=== PATIENT | female | born 1975 | race Caucasian/White ===

== ENCOUNTER 2017-01-12 23:51 | Emergency (ER) | payer MEDICAID ==
[~2017-01-12] VITALS: Ht 157.5 cm; Wt 69.5 kg
[~2017-01-12 23:51] MED LIST: ACET1TAB40 PO; DICL50TA11 PO; HYDR-3498 PO; IBUP-1542 PO; ONDA4TAB14 PO; PEN500 PO; PRED20TA PO
[2017-01-13 00:12] VITALS: Ht 157.5 cm; Wt 69.5 kg
[2017-01-13] MEDS ORDERED: METHYLPREDNISOLONE 125 MG INJ IM STA (01:40)
[2017-01-13] MEDS ORDERED: ALBUTEROL 0.5% (NEB) 2.5 MG/0.5 ML AMP INH STA (01:40)
[2017-01-13] MEDS ORDERED: IPRATROPIUM (NEB) 0.5 MG/2.5 ML AMP HHN ONE (02:00)
--- NOTE | 2017-01-13 02:04 | ERD ---
ER Documentation Chief Complaint Date/Time DATE: 01/13/17 TIME: 02:02 Chief Complaint cough x 3 days, hx- asthma HPI 41-year-old female presents here in emergency department for complains of cough and wheezing for 3 days. Patient has history of asthma, does not have any inhaler at home. Patient has been having dry cough, does not cough up any phlegm or blood. Patient does not have any chest pain or palpitations. Patient is complaining of runny nose nasal congestion with clear nasal discharge. Patient has been having on and off fever. Patient denies any sick contacts. ROS All systems reviewed and are negative except as per history of present illness. Medications Home Meds Active Scripts Ondansetron (Ondansetron Odt) 4 Mg Tab.rapdis, 4 MG PO Q6H Y for NAUSEA AND/OR VOMITING, #15 TAB Prov:OMAR AGUIRRE PA-C 10/03/16 Ibuprofen* (Motrin*) 600 Mg Tab, 600 MG PO Q6H Y for PAIN AND OR ELEVATED TEMP, #30 TAB Prov:OMAR AGUIRRE PA-C 10/03/16 Acetaminophen with Codeine (Acetaminophen-Cod #3 Tablet) 1 Each Tablet, 1 TAB PO Q6H Y for PAIN, #7 TAB Prov:HUDSON JOYCE DO 09/18/16 Diclofenac Sodium* (Diclofenac Sodium*) 50 Mg Tablet.dr, 50 MG PO TID, #10 TAB Prov:HUDSON JOYCE DO 09/18/16 Prednisone* (Prednisone*) 20 Mg Tab, 50 MG PO DAILY for 5 Days, TAB Prov:BELTRÁNSANJANA PHILIPPE I. AUTOMOTIVE COLLISION ESTIMATOR 03/23/16 Penicillin V Potassium* (Penicillin V K*) 500 Mg Tab, 500 MG PO QID for 10 Days , TAB Prov:BELTRÁNSANJANA PHILIPPE I. AUTOMOTIVE COLLISION ESTIMATOR 03/23/16 Hydrocodone Bit-Acetaminophen* ([place]*) 5-325 Mg Tab, 1 TAB PO Q6 Y for PAIN, # 7 TAB Prov:SANJANA BELTRÁN I. AUTOMOTIVE COLLISION ESTIMATOR 03/23/16 Allergies Allergies: Coded Allergies: No Known Allergy (Verified , 03/21/11) PMhx/Soc Medical and Surgical Hx: pt denies Surgical Hx History of Surgery: No Anesthesia Reaction: No Hx Neurological Disorder: No Hx Respiratory Disorders: Yes (ASTHMA) Hx Cardiac Disorders: Yes (HTN, not taking medication) Hx Psychiatric Problems: No Hx Miscellaneous Medical Probl: No Hx Alcohol Use: No Hx Substance Use: No Hx Tobacco Use: No Smoking Status: Never smoker FmHx Family History: No coronary disease, No diabetes, No other Physical Exam Vitals Vital Signs Date Time Temp Pulse Resp B/P Pulse Ox O2 Delivery O2 Flow Rate FiO2 01/13/17 02:15 78 20 98 21 01/13/17 00:12 98.9 85 20 148/97 97 Physical Exam GENERAL: The patient is well developed and appropriate for usual state of health, in no apparent distress. CHEST: Diffuse wheezing bilaterally. There are no rales, crackles or rhonchi. HEART: Regular rate and rhythm. No murmurs, clicks, rubs or gallops. No S3 or S4. ABDOMEN: Soft, nontender and nondistended. Good bowel sounds. No rebound or guarding. No gross peritonitis. No gross organomegaly or masses. No Ospina sign or McBurney point tenderness. BACK: No midline or flank tenderness. EXTREMITIES: Equal pulses bilaterally. There is no peripheral clubbing, cyanosis or edema. No focal swelling or erythema. Full range of motion. Grossly neurovascularly intact. NEURO: Alert and oriented. Cranial nerves 2-12 intact. Motor strength in all 4 extremities with 5/5 strength. Sensation grossly intact. Normal speech and gait. SKIN: There is no apparent rash or petechia. The skin is warm and dry. HEMATOLOGIC AND LYMPHATIC: There is no evidence of excessive bruising or lymphedema. No gross cervical, axillary, or inguinal lymphadenopathy. Results 24 hrs Current Medications Medications (Trade) Dose Ordered Sig/Lupe Route PRN Reason Start Time Stop Time Status Last Admin Dose Admin Albuterol (Proventil 0.5% (Neb)) 10 mg ONCE STAT INH 01/13/17 01:40 01/13/17 01:50 DC 01/13/17 02:15 Methylprednisolone Sodium Succinate (Solu-Medrol) 125 mg ONCE STAT IM 01/13/17 01:40 01/13/17 01:50 DC 01/13/17 02:07 Ipratropium Reagan (Atrovent 0.02% (Neb)) 0.5 mg ONCE ONCE HHN 01/13/17 02:00 01/13/17 02:01 DC 01/13/17 02:15 Breathing treatment of albuterol and Atrovent Solu-Medrol IM injection was given here in emergency department, after treatment, patient's lungs sounds are clear and patient's oxygenation is better. Patient verbalized feeling much better. PROCEDURE: XR Chest. CLINICAL INDICATION: Asthma exacerbation TECHNIQUE: Single frontal chest x-ray. COMPARISON: 12/14/2014 FINDINGS: The lungs are clear. No focal opacification is seen. The cardiomediastinal silhouette is unremarkable. The osseous structures are unremarkable. Oxygen tubing projected over the left lung. IMPRESSION: 1. There is no acute cardiopulmonary process. RPTAT: HJES .Norman Weber MD, MD Date Time Electronically viewed and signed by .Norman Weber MD, MD on 01/13/2017 02:30 .S/ CC: RUSSEL PURCELL AUTOMOTIVE COLLISION ESTIMATOR Procedures/MDM Medical Decision Making: Patient symptoms are most likely consistent with acute bronchitis with acute asthma exacerbation, which viral in origin. There is low suspicion for Pneumonia at this time since patients lungs sounds are clear, patient O2 saturation is normal and patient doesnt show any respiratory distress. Patients chest xray doesnt show infiltrates or any other cardiopulmonary emergencies at this time. There is low suspicion for other cardiopulmonary emergencies at this time such as CHF, Pulmonary Embolism, Pneumothorax, Aortic Aneurysm or any other cardiopulmonary emergencies at this time. There is low suspicion for sepsis. Patient appears well and is hemodynamically stable. Fever is controlled with medicines. Disposition: Home. Condition: Stable Prescriptions: Albuterol, prednisone, Zyrtec, ibuprofen, guaifenesin w/ codeine Instructions: Patient is advised to take medications as prescribed. Patient is advised to rest. Patient advised to increase fluid intake, do humidifier at home and if possible, do salt water gargles. Patient is advised that if symptoms are worse, shortness of breath, uncontrolled fever, stridor, vomiting, worst signs and symptoms to return to emergency department immediately. Otherwise, patient is advised to follow up with primary doctor in 5-7 days. Departure Diagnosis: Primary Impression: Asthma with acute exacerbation Asthma severity: unspecified severity Qualified Code: J45.901 - Asthma with acute exacerbation, unspecified asthma severity Additional Impression: Acute bronchitis Bronchitis organism: unspecified organism Qualified Code: J20.9 - Acute bronchitis, unspecified organism Condition: Stable Patient Instructions: Asthma, Acute (Adult) Additional Instructions: Patient is advised to take medications as prescribed. Patient is advised to rest. Patient advised to increase fluid intake, do humidifier at home and if possible, do salt water gargles. Patient is advised that if symptoms are worse, shortness of breath, uncontrolled fever, stridor, vomiting, worst signs and symptoms to return to emergency department immediately. Otherwise, patient is advised to follow up with primary doctor in 5-7 days. RUSSEL PURCELL NP Jan 13, 2017 02:04
--- NOTE | 2017-01-13 02:30 | RADRPT ---
PROCEDURE: XR Chest. CLINICAL INDICATION: Asthma exacerbation TECHNIQUE: Single frontal chest x-ray. COMPARISON: 12/14/2014 FINDINGS: The lungs are clear. No focal opacification is seen. The cardiomediastinal silhouette is unremarka ble. The osseous structures are unremarkable. Oxygen tubing projected over the left lung. IMPRESSION: 1. There is no acute cardiopulmonary process. RPTAT: HJES .Norman Weber MD, MD Date Time Electronically viewed and signed by .Norman Weber MD, on 01/13/2017 02:30 .S/
[2017-01-13] MEDS ORDERED: PRED50TA PO (03:28)
[2017-01-13] MEDS ORDERED: CETI10CA PO (03:28)
[2017-01-13] MEDS ORDERED: GUAI473L22 PO (03:28)
[2017-01-13] MEDS ORDERED: IBUP-1542 PO (03:28)
[2017-01-13] MEDS ORDERED: ALBU8.5H3 INH (03:28)
[2017-01-13 03:43] VITALS: BP 133/84; PULSE 111; RESP 18; TEMP 98.1
== END 2017-01-13 03:43 | disposition home or self-care (01) ==
LOC: FTE 23:51
DX: J45.901 Unspecified asthma with (acute) exacerbation (principal); J20.9 Acute bronchitis, unspecified; I10 Essential (primary) hypertension
CPT/HCPCS: 71010; 94644; 96372; J2930; Z7502; Z7610

== ENCOUNTER 2018-03-14 19:07 | Emergency (ER) | END 2018-03-14 23:19 | disposition home or self-care (01) ==

== ENCOUNTER 2018-06-04 20:33 | Emergency (ER) | END 2018-06-05 00:55 | disposition home or self-care (01) ==

== ENCOUNTER 2019-01-15 14:36 | Emergency (ER) | payer MEDICAID ==
[~2019-01-15] VITALS: Ht 167.6 cm; Wt 72.1 kg
[~2019-01-15 14:36] MED LIST changes: +ALBU18HF INHALATION; +ALBU2.5V3 NEB; +ALBU8.5H8 INH; +CETI10CA PO; +FAMO-96 PO; +GUAI473L22 PO; +NAPR-985 PO; -PEN500 PO; +PENI500T PO; +PRED50TA PO
[2019-01-15 14:55] VITALS: RESP 20; Ht 167.6 cm; Wt 72.1 kg
--- NOTE | 2019-01-15 17:23 | ERD ---
ER Documentation Chief Complaint Chief Complaint Complains of a cough x 3 days HPI 43-year-old female, with history of hypertension, presents the emergency department, complaining of 6 days with worsening of cough, productive, worse at night. The patient denies fevers, no chills, no shortness of breath. No chest pain, no palpitations, no lower extremity edema. ROS All systems reviewed and are negative except as per history of present illness. Medications Home Meds Active Scripts Famotidine* (Pepcid*) 20 Mg Tablet, 20 MG PO BID for 10 Days, #40 TAB Prov:GELA,VIJAY 06/05/18 Naproxen* (Naprosyn*) 500 Mg Tablet, 500 MG PO BID PRN for PAIN AND/OR INFLAMMATION for 10 Days, #20 TAB Prov:GELA,VIJAY 06/05/18 Albuterol Sulfate* (Albuterol Sulfate* Neb) 0.083%-3 Ml Neb, 2.5 MG NEB Q4 PRN for SHORTNESS OF BREATH, #30 EA Prov:BRIGIDO HASSAN PA-C 03/14/18 Albuterol Sulfate* (Ventolin HFA*) 18 Gm Hfa.aer.ad, 2 PUFF INHALATION Q4H, #1 INHALER Prov:BRIGIDO HASSAN PA-C 03/14/18 Prednisone* (Prednisone*) 20 Mg Tab, 40 MG PO DAILY for 4 Days, #8 TAB Prov:BRIGIDO HASSAN PA-C 03/14/18 Cetirizine Hcl* (Zyrtec*) 10 Mg Capsule, 10 MG PO DAILY, #30 TAB.CHEW Prov:RUSSEL PURCELL NP 01/13/17 Ibuprofen* (Motrin*) 600 Mg Tab, 600 MG PO Q6H PRN for PAIN AND OR ELEVATED TEMP, #30 TAB Prov:RUSSEL PURCELL NP 01/13/17 Prednisone* (Prednisone*) 50 Mg Tablet, 50 MG PO DAILY for 5 Days, TAB Prov:RUSSEL PURCELL NP 01/13/17 Guaifenesin-Codeine Phosphate* (Guaifenesin* AC Cough Syrup) 473 Ml Liquid, 10 ML PO Q4H PRN for COUGH, #120 ML Prov:RUSSEL PURCELL CATERING COOK 01/13/17 Albuterol Sulfate* (Proair HFA*) 8.5 Gm Hfa.aer.ad, 2 PUFF INH Q4H PRN for WHEEZING AND SOB, #1 INHALER Prov:RUSSEL PURCELL CATERING COOK 01/13/17 Ondansetron (Ondansetron Odt) 4 Mg Tab.rapdis, 4 MG PO Q6H PRN for NAUSEA AND/OR VOMITING, #15 TAB Prov:OMAR AGUIRRE PA-C 10/03/16 Ibuprofen* (Motrin*) 600 Mg Tab, 600 MG PO Q6H PRN for PAIN AND OR ELEVATED TEMP, #30 TAB Prov:OMAR AGUIRRE PA-C 10/03/16 Acetaminophen with Codeine (Acetaminophen-Cod #3 Tablet) 1 Each Tablet, 1 TAB PO Q6H PRN for PAIN, #7 TAB Prov:HUDSON JOYCE DO 09/18/16 Diclofenac Sodium* (Diclofenac Sodium*) 50 Mg Tablet.dr, 50 MG PO TID, #10 TAB Prov:HUDSON JOYCE DO 09/18/16 Prednisone* (Prednisone*) 20 Mg Tab, 50 MG PO DAILY for 5 Days, TAB Prov:SANJANA BELTRÁN I. CATERING COOK 03/23/16 Penicillin V Potassium* (Penicillin V K*) 500 Mg Tab, 500 MG PO QID for 10 Days, TAB Prov:SANJANA BELTRÁN I. CATERING COOK 03/23/16 Hydrocodone Bit-Acetaminophen* ([place]*) 5-325 Mg Tab, 1 TAB PO Q6 PRN for PAIN, #7 TAB Prov:SANJANA BELTRÁN I. CATERING COOK 03/23/16 Allergies Allergies: Coded Allergies: No Known Allergy (Verified , 03/21/11) PMhx/Soc History of Surgery: No Anesthesia Reaction: No Hx Neurological Disorder: No Hx Respiratory Disorders: Yes (ASTHMA) Hx Cardiac Disorders: Yes (HTN, not taking medication) Hx Psychiatric Problems: No Hx Miscellaneous Medical Probl: No Hx Alcohol Use: No Hx Substance Use: No Hx Tobacco Use: No FmHx Family History: No diabetes Physical Exam Vitals Vital Signs Date Temp Pulse Resp B/P (MAP) Pulse Ox O2 O2 Flow FiO2 Time Delivery Rate 2/18/19 86 20 96 21 17:46 01/15/19 98.5 86 20 147/97 98 14:55 (114) Physical Exam Const: No acute distress Head: Atraumatic Eyes: Normal Conjunctiva ENT: Normal External Ears, Nose and Mouth. Neck: Full range of motion. No meningismus. Resp: Clear to auscultation bilaterally Cardio: Regular rate and rhythm, no murmurs Abd: Soft, non tender, non distended. Normal bowel sounds Skin: No petechiae or rashes Back: No midline or flank tenderness Ext: No cyanosis, or edema Neur: Awake and alert Psych: Normal Mood and Affect Results 24 hrs Current Medications Medications Dose Sig/Lupe Start Time Status Last (Trade) Ordered Route PRN Stop Time Admin Dose Reason Admin Albuterol 5 mg ONCE STAT 01/15/19 DC 01/15/19 (Proventil NEB 17:27 17:45 0.083% (Neb)) 01/15/19 17:29 Ipratropium 0.5 mg ONCE STAT 01/15/19 DC 01/15/19 [place] NEB 17:27 17:45 (Atrovent 01/15/19 17:29 0.02% (Neb)) Prednisone 60 mg ONCE STAT 01/15/19 DC 01/15/19 (Prednisone) PO 17:27 17:33 01/15/19 17:29 Departure Diagnosis: Primary Impression: Acute asthma exacerbation Condition: Stable Additional Instructions: Muchas mariela por [facility] para moreira servicio. Esperamos que en moreira visita a la win de emergencia moreira problema medico haya sido solucionado y que se sienta mucho mejor. Para estar seguros que moreira mejoria sigue en proceso, le pedimos el favor de hacer kaleb cara de seguimiento medico con moreira doctor primario en los proximos 2-4 price. Lleve con usted estos documentos y las medicinas recetadas. Si zo sintomas empeoran, NO SE ESPERE, por favor regrese a win de emergencia INMEDIATAMENTE. En shane que usted no tenga un mdico de atencin primaria: Llame al mdico o clnica comunitaria de referencia que aparece abajo patrick las horas de consultorio para hacer kaleb cara para que le vean. CLINICAS: [facility] [phone] [facility] [phone] [facility] [phone] [place] [phone] [place] [id number] [phone] [facility]. [phone] AASHISH VAUGHAN MD Jan 15, 2019 17:23
[2019-01-15] MEDS ORDERED: IPRATROPIUM (NEB) 0.5 MG/2.5 ML AMP NEB STA (17:27)
[2019-01-15] MEDS ORDERED: ALBUTEROL 0.083% (NEB) 2.5 MG/3 ML AMP NEB STA (17:27)
[2019-01-15] MEDS ORDERED: predniSONE 20 MG TAB PO STA (17:27)
[2019-01-15] MEDS ORDERED: ALBU8.5H8 INH (18:34)
[2019-01-15] MEDS ORDERED: PRED20TA PO (18:34)
[2019-01-15] MEDS ORDERED: ALBU2.5V3 NEB (18:34)
[2019-01-15] MEDS ORDERED: AZIT250T PO (18:34)
[2019-01-15 18:37] VITALS: BP 125/88; PULSE 91
== END 2019-01-15 18:43 | disposition home or self-care (01) ==
LOC: FTE 14:36
DX: J45.901 Unspecified asthma with (acute) exacerbation (principal); I10 Essential (primary) hypertension; R40.2142 Coma scale, eyes open, spontaneous, at arrival to emergency department; R40.2252 Coma scale, best verbal response, oriented, at arrival to emergency department; R40.2362 Coma scale, best motor response, obeys commands, at arrival to emergency department
CPT/HCPCS: 94664; J7512; Z7502; Z7610

== ENCOUNTER 2019-03-18 14:15 | Emergency (ER) | payer MEDICAID ==
[~2019-03-18] VITALS: Wt 67.0 kg
[~2019-03-18 14:15] MED LIST changes: +AZIT250T PO
[2019-03-18] MEDS ORDERED: KETOROLAC 30 MG INJ IM STA (15:11)
[2019-03-18] MEDS ORDERED: BUTA1CAP38 PO (16:22)
--- NOTE | 2019-03-18 16:25 | ERD ---
ER Documentation Chief Complaint Chief Complaint hughes since yesterday HPI 43-year-old female presents with headache for last 3 days. She describes it as frontal headache. Patient describes it as a 10 dull without radiation. No increasing or decreasing factors. She denies previous history of headaches patient has recent illnesses or history of trauma. She denies any deficits, chest pain, shortness of breath, vomiting abdominal pain, urinary complaints. Patient denies stress. ROS All systems reviewed and are negative except as per history of present illness. Medications Home Meds Active Scripts Yanxcjjtsm-Tzzigkebzxsgz-Rlazknyb* (Fioricet*) 50-300-40 Mg Capsule, 1 CAP PO Q4H PRN for HEADACHE, #15 CAP Prov:NIKO BURDEN MD 03/18/19 Albuterol Sulfate* (Albuterol Sulfate* Neb) 0.083%-3 Ml Neb, 2.5 MG NEB Q4 PRN for SHORTNESS OF BREATH, #30 EA Prov:AASHISH STANLEY MD 01/15/19 Albuterol Sulfate* (Proair HFA*) 8.5 Gm Hfa.aer.ad, 2 PUFF INH Q4 PRN for COUGH, #1 INHALER Prov:AASHISH STANLEY MD 01/15/19 Prednisone* (Prednisone*) 20 Mg Tab, 40 MG PO DAILY for 4 Days, TAB Prov:AASHISH STANLEY MD 01/15/19 Azithromycin* (Zithromax*) 250 Mg Tablet, 250 MG PO .ZPACK DIRECTED, #6 TAB TAKE 500 MG (2 TABS) THE FIRST DAY THEN 250 MG (1 TAB) DAYS 2-5 Prov:AASHISH STANLEY MD 01/15/19 Famotidine* (Pepcid*) 20 Mg Tablet, 20 MG PO BID for 10 Days, #40 TAB Prov:GELA,VIJAY 06/05/18 Naproxen* (Naprosyn*) 500 Mg Tablet, 500 MG PO BID PRN for PAIN AND/OR INFLAMMATION for 10 Days, #20 TAB Prov:GELA,VIJAY 06/05/18 Albuterol Sulfate* (Albuterol Sulfate* Neb) 0.083%-3 Ml Neb, 2.5 MG NEB Q4 PRN for SHORTNESS OF BREATH, #30 EA Prov:HASSAN,BRIGIDO J PA-C 03/14/18 Albuterol Sulfate* (Ventolin HFA*) 18 Gm Hfa.aer.ad, 2 PUFF INHALATION Q4H, #1 INHALER Prov:BRIGIDO HASSAN PA-C 03/14/18 Prednisone* (Prednisone*) 20 Mg Tab, 40 MG PO DAILY for 4 Days, #8 TAB Prov:BRIGIDO HASSAN PA-C 03/14/18 Cetirizine Hcl* (Zyrtec*) 10 Mg Capsule, 10 MG PO DAILY, #30 TAB.CHEW Prov:RUSSEL PURCELL NP 01/13/17 Ibuprofen* (Motrin*) 600 Mg Tab, 600 MG PO Q6H PRN for PAIN AND OR ELEVATED TEMP, #30 TAB Prov:RUSSEL PURCELL NP 01/13/17 Prednisone* (Prednisone*) 50 Mg Tablet, 50 MG PO DAILY for 5 Days, TAB Prov:RUSSEL PURCELL NP 01/13/17 Guaifenesin-Codeine Phosphate* (Guaifenesin* AC Cough Syrup) 473 Ml Liquid, 10 ML PO Q4H PRN for COUGH, #120 ML Prov:RUSSEL PURCELL NP 01/13/17 Albuterol Sulfate* (Proair HFA*) 8.5 Gm Hfa.aer.ad, 2 PUFF INH Q4H PRN for WHEEZING AND SOB, #1 INHALER Prov:RUSSEL PURCELL NP 01/13/17 Ondansetron (Ondansetron Odt) 4 Mg Tab.rapdis, 4 MG PO Q6H PRN for NAUSEA AND/OR VOMITING, #15 TAB Prov:OMAR AGUIRRE PA-C 10/03/16 Ibuprofen* (Motrin*) 600 Mg Tab, 600 MG PO Q6H PRN for PAIN AND OR ELEVATED TEMP, #30 TAB Prov:OMAR AGUIRRE PA-C 10/03/16 Acetaminophen with Codeine (Acetaminophen-Cod #3 Tablet) 1 Each Tablet, 1 TAB PO Q6H PRN for PAIN, #7 TAB Prov:HUDSON JOYCE DO 09/18/16 Diclofenac Sodium* (Diclofenac Sodium*) 50 Mg Tablet., 50 MG PO TID, #10 TAB Prov:HUDSON JOYCE DO 09/18/16 Prednisone* (Prednisone*) 20 Mg Tab, 50 MG PO DAILY for 5 Days, TAB Prov:BELTRÁNSANJANA I. IMAGING ACCOUNT MANAGER 03/23/16 Penicillin V Potassium* (Penicillin V K*) 500 Mg Tab, 500 MG PO QID for 10 Days, TAB Prov:BELTRÁN,SANJANA I. IMAGING ACCOUNT MANAGER 03/23/16 Hydrocodone Bit-Acetaminophen* ([place]*) 5-325 Mg Tab, 1 TAB PO Q6 PRN for PAIN, #7 TAB Prov:BELTRÁNSANJANA I. IMAGING ACCOUNT MANAGER 03/23/16 Allergies Allergies: Coded Allergies: No Known Allergy (Verified , 03/21/11) PMhx/Soc History of Surgery: No Anesthesia Reaction: No Hx Neurological Disorder: No Hx Respiratory Disorders: Yes (ASTHMA) Hx Cardiac Disorders: Yes (HTN, not taking medication) Hx Psychiatric Problems: No Hx Miscellaneous Medical Probl: No Hx Alcohol Use: No Hx Substance Use: No Hx Tobacco Use: No FmHx Family History: No diabetes, No coronary disease, No other Physical Exam Vitals Vital Signs Date Temp Pulse Resp B/P (MAP) Pulse Ox O2 O2 Flow FiO2 Time Delivery Rate 03/18/19 98.1 80 18 147/85 99 14:29 (105) Physical Exam Const: No acute distress Head: Atraumatic Eyes: Normal Conjunctiva. Eyes Leia and extraocular movements intact. ENT: Normal External Ears, Nose and Mouth. TMs and oropharynx normal. Neck: Full range of motion. No meningismus. Resp: Clear to auscultation bilaterally Cardio: Regular rate and rhythm, no murmurs Abd: Soft, non tender, non distended. Normal bowel sounds Skin: No petechiae or rashes Back: No midline or flank tenderness Ext: No cyanosis, or edema Neur: Awake and alert. Normal gait. No appreciable focal neurologic deficits. No pronator drift. Cranial nerves II through XII grossly intact. Psych: Normal Mood and Affect Results 24 hrs Laboratory Tests Test 03/18/19 15:30 03/18/19 15:32 Bedside Urine pH (LAB) 7.5 Bedside Urine Protein (LAB) 1+ Bedside Urine Glucose (UA) Negative Bedside Urine Ketones (LAB) Trace Bedside Urine Blood Trace-intact Bedside Urine Nitrite (LAB) Negative Bedside Urine Leukocyte Esterase (L Negative POC Beta HCG, Qualitative NEGATIVE Current Medications Medications Dose Sig/Lupe Start Time Status Last (Trade) Ordered Route PRN Stop Time Admin Dose Reason Admin Ketorolac 30 mg ONCE STAT 03/18/19 DC 03/18/19 Tromethamine IM 15:11 15:37 (Toradol) 03/18/19 15:13 Procedures/MDM Presents with headache of uncertain etiology which is a frontal headache. No previous history of headaches CT brain was performed which was read as normal. Patient was given Toradol 30 mg IM. Patient is no signs of meningitis, internal bleeding, neurologic deficit, additional concerning signs or symptoms. She may have tension headache or headache of uncertain etiology. Will treat with Fioricet, primary care follow-up and return precautions. The patient was stable with no new complaints during the ER course. Clinically, there is no current evidence to suggest meningitis, sepsis, acute abdomen, pneumonia, stroke, acute coronary syndrome, pulmonary embolism, aortic dissection or any other emergent condition appearing to require further evaluation or hospitalization. Patient counseled regarding my diagnostic impression and care plan. Prior to discharge all questions answered. Pt agrees with treatment plan and understands strict return precautions. Pt is instructed to follow up with primary care provider jeff chase 24-48 hours. Precautionary instructions provided including instructions to return to the ER if not improving or for any worsening or changing symptoms or concerns. The patient's blood pressure was elevated (>120/80) but appears stable without evidence of hypertension emergency or urgency. The patient was counseled about the risks of hypertension and urged to pursue outpatient monitoring and therapy within a week with their primary care physician. I discussed the findings with the patient. I advised the patient to follow-up with the primary physician in about 1-2 days, sooner if needed and return if any concern. Departure Diagnosis: Primary Impression: Headache Headache type: unspecified Headache chronicity pattern: unspecified pattern Intractability: not intractable Qualified Codes: R51 - Headache Condition: Stable Patient Instructions: Self-Care for Headaches Referrals: NO PRIMARY,CARE PHYSICIAN (PCP) Additional Instructions: Examines normal hoy. Cheque otro vez con moreira doctor primario en el proximo price or regresa para mas o nueva simptomas. NIKO BURDEN MD Mar 18, 2019 16:25
[2019-03-18 16:47] VITALS: BP 132/78; PULSE 77; RESP 18
== END 2019-03-18 16:48 | disposition home or self-care (01) ==
LOC: FTE 14:15
DX: R51 Headache (principal); I10 Essential (primary) hypertension; J45.909 Unspecified asthma, uncomplicated
CPT/HCPCS: 70450; 81003; 81025; 96372; J1885; Z7502